=== PATIENT | male | born 1950 | race Hispanic/Latino ===

== ENCOUNTER 2021-11-03 17:25 | Inpatient (IN) | payer MEDICARE ==
[~2021-11-03] VITALS: Ht 180.3 cm; Wt 83.5 kg
[2021-11-03] MEDS ORDERED: METFORMIN HCL500 M1 PO (17:45)
[2021-11-03] MEDS ORDERED: BASAGLAR K100 UNIT/1 SQ (17:45)
[2021-11-03] MEDS ORDERED: ATORVASTATIN CA20 MG PO (17:45)
[2021-11-03] MEDS ORDERED: SODIUM CHLORIDE FLUSH 10 ML SYR INJ PRN (19:30)
[2021-11-03] MEDS ORDERED: CEFTRIAXONE 1 GM VIAL IV ONE (19:30)
[2021-11-03] MEDS ORDERED: LIDOCAINE VISC 2% SOLN 15 ML UDC ONE (19:33)
[2021-11-03] MEDS ORDERED: SODIUM CHLORIDE 0.9% 100 ML ONE (19:49)
[2021-11-03] MEDS ORDERED: CEFTRIAXONE 1 GM VIAL ONE (19:49)
[2021-11-03 20:55] VITALS: BP 129/71
[2021-11-03] MEDS: SODIUM CHLORIDE 0.9% 1000ML 1,000 ML IV SCH (21:08)
[2021-11-03] MEDS ORDERED: LISINOPRIL10 MG PO (21:51)
[2021-11-03] MEDS ORDERED: OXYBUTYNIN CHLOR5 M1 PO (21:51)
[2021-11-03] MEDS ORDERED: FLOMAX0.4 MG PO (21:51)
[2021-11-03] MEDS ORDERED: PRAVASTATIN SOD40 MG PO (21:51)
[2021-11-04] VITALS (8 sets, daily range): BP systolic 119–136; BP diastolic 68–80
[2021-11-04 06:55] LABS: BASOPHILS # (AUTO) 0.1 (0.0-0.1); BASOPHILS % 1.1 % (0.0-1.0); EOSINOPHILS # (AUTO) 0.5 (0.0-0.4); EOSINOPHILS % 4.4 % (0.0-6.0); HEMATOCRIT 45.2 % (38.2-49.6); LYMPHOCYTES # (AUTO) 1.4 (1.0-3.2); LYMPHOCYTES % 11.7 % (18.0-39.1); MEAN CORPUSCULAR HEMOGLOBIN 25.5 pg (28-32); MEAN CORPUSCULAR VOLUME 82.2 fL (81-99); MONOCYTES % 8.2 % (4.4-11.3); NEUTROPHILS # (AUTO) 8.8 (2.1-6.9); NEUTROPHILS % 73.8 % (38.7-80.0); PLATELET COUNT 1023 x10e3/uL (140-360)
[2021-11-04 08:15] LABS: PLATELET ESTIMATE MARKEDLY INCREASED
[2021-11-04 08:18] LABS: ELLIPTOCYTE, RBC SLIGHT
[2021-11-04 08:19] LABS: RBC MORPHOLOGY COMMENT NORMAL
[2021-11-04 08:20] LABS: ANISOCYTOSIS SLIGHT; HYPOCHROMASIA SLIGHT
[2021-11-04 08:21] LABS: PLATELET MORPHOLOGY COMMENT NORMAL
[2021-11-04] MEDS ORDERED: DEXTROSE 50% SYRINGE 50 ML IV PRN (09:00)
[2021-11-04] MEDS ORDERED: INSULIN GLARGINE HUM REC ANLOG 38 UNIT SQ SCH (09:00)
[2021-11-04] MEDS ORDERED: [UNRECOGNIZED DRUG - OTHER] SQ SCH (09:00)
[2021-11-04] MEDS: SODIUM CHLORIDE 0.9% 1000ML 1,000 ML IV SCH ×2 (09:20→21:44)
[2021-11-04] MEDS: LISINOPRIL 10 MG TAB PO SCH (09:22)
[2021-11-04] MEDS: OXYBUTYNIN CHLORIDE XL 5 MG TAB PO SCH (09:23)
[2021-11-04 09:46] LABS: ANION GAP 10.4 mmol/L (8-16); CALCIUM 8.2 mg/dL (8.4-10.2); CREATININE, SERUM 0.8 mg/dL (0.72-1.25); POTASSIUM 4.4 mmol/L (3.5-5.1)
[2021-11-04] MEDS: INSULIN LISPRO 100 UNIT/1 ML 3ML VIAL SQ SCH ×3 (12:17→21:00)
[2021-11-04 14:19] LABS: HEMATOCRIT 47.1 % (38.2-49.6); HEMOGLOBIN 14.1 g/dL (14.0-18.0); MEAN CORPUSCULAR HEMOGLOBIN 25.1 pg (28-32); MEAN CORPUSCULAR HGB CONC 29.9 g/dL (31-35); PLATELET COUNT 1058 x10e3/uL (140-360); RED BLOOD COUNT 5.61 x10e6/uL (4.3-5.7); RED CELL DISTRIBUTION WIDTH 16.1 % (11.7-14.4)
[2021-11-04] MEDS ORDERED: LACTULOSE SYRUP 20 GM/30 ML UDC PO ONE (17:10)
[2021-11-04] MEDS: ENOXAPARIN SOD INJ 40 MG/0.4 ML SYR SC SCH (17:32)
[2021-11-04] MEDS: TAMSULOSIN HCL 0.4 MG CAP PO SCH (17:32)
[2021-11-04] MEDS: HYDROXYUREA 500 MG CAPSULE PO SCH (17:33)
[2021-11-04] MEDS ORDERED: ONDANSETRON HCL INJ 2MG/ML 2ML 2 MG/ML VIAL IV PRN (20:45)
[2021-11-04] MEDS ORDERED: Morphine 2mg Syringe 2 MG/ML SYR IV PRN (20:45)
[2021-11-04] MEDS ORDERED: ACETAMINOPHEN 325 MG TAB PO PRN (20:45)
[2021-11-04] MEDS ORDERED: TRAMADOL HCL 50 MG TAB PO PRN (20:45)
[2021-11-04] MEDS ORDERED: PHENAZOPYRIDINE HCL 100 MG TAB PO ONE (20:45)
[2021-11-04] MEDS: PRAVASTATIN 20 MG TAB PO SCH (20:55)
[2021-11-04] MEDS: INSULIN GLARGINE 100 UNITS/ML VIAL SQ SCH (21:00)
[2021-11-05] VITALS (8 sets, daily range): BP systolic 121–142; BP diastolic 65–77
[2021-11-05 05:43] LABS: BASOPHILS # (AUTO) 0.2 (0.0-0.1); BASOPHILS % 1.1 % (0.0-1.0); EOSINOPHILS # (AUTO) 0.5 (0.0-0.4); EOSINOPHILS % 3.5 % (0.0-6.0); HEMATOCRIT 46.2 % (38.2-49.6); HEMOGLOBIN 14.1 g/dL (14.0-18.0); LYMPHOCYTES # (AUTO) 1.4 (1.0-3.2); MEAN CORPUSCULAR HEMOGLOBIN 25.3 pg (28-32); MEAN CORPUSCULAR HGB CONC 30.5 g/dL (31-35); MEAN CORPUSCULAR VOLUME 82.9 fL (81-99); MONOCYTES # (AUTO) 1.1 (0.2-0.8); MONOCYTES % 7.9 % (4.4-11.3); NEUTROPHILS # (AUTO) 10.6 (2.1-6.9); NEUTROPHILS % 76.9 % (38.7-80.0); PLATELET COUNT 1076 x10e3/uL (140-360); RED BLOOD COUNT 5.57 x10e6/uL (4.3-5.7)
[2021-11-05 06:17] LABS: ALBUMIN 3.3 g/dL (3.5-5.0); ALBUMIN/GLOBULIN RATIO 1.1 (0.8-2.0); ANION GAP 13.7 mmol/L (8-16); CALCIUM 8.3 mg/dL (8.4-10.2); CREATININE, SERUM 0.84 mg/dL (0.72-1.25); POTASSIUM 3.7 mmol/L (3.5-5.1)
[2021-11-05 07:18] LABS: CLARITY,URINE CLEAR (CLEAR); COLOR,URINE YELLOW (YELLOW); KETONES,URINE TRACE (NEGATIVE); NITRITE,URINE NEGATIVE (NEGATIVE); PROTEIN,URINE DIPSTICK NEGATIVE (NEGATIVE); URINE UROBILINOGEN 0.2 mg/dL (0.2 - 1)
[2021-11-05 07:19] LABS: LEUKOCYTE ESTERASE ,URINE TRACE (NEGATIVE)
[2021-11-05] MEDS: INSULIN LISPRO 100 UNIT/1 ML 3ML VIAL SQ SCH ×4 (07:30→23:01)
[2021-11-05 08:10] LABS: RBC,URINE 0-5 /HPF (0-5); WBC,URINE (MAN) 0-5 /HPF (0-5)
[2021-11-05] MEDS: OXYBUTYNIN CHLORIDE XL 5 MG TAB PO SCH (08:47)
[2021-11-05] MEDS: LISINOPRIL 10 MG TAB PO SCH (08:48)
[2021-11-05] MEDS: SODIUM CHLORIDE 0.9% 1000ML 1,000 ML IV SCH ×2 (10:42→23:03)
[2021-11-05] MEDS: TAMSULOSIN HCL 0.4 MG CAP PO SCH (16:52)
[2021-11-05] MEDS: HYDROXYUREA 500 MG CAPSULE PO SCH (16:53)
[2021-11-05] MEDS: ENOXAPARIN SOD INJ 40 MG/0.4 ML SYR SC SCH (16:53)
[2021-11-05] MEDS ORDERED: HYDROXYUREA 500 MG CAPSULE PO ONE (20:00)
[2021-11-05] MEDS: PRAVASTATIN 20 MG TAB PO SCH (22:53)
[2021-11-05] MEDS: INSULIN GLARGINE 100 UNITS/ML VIAL SQ SCH (23:02)
[2021-11-06] VITALS (9 sets, daily range): BP systolic 124–139; BP diastolic 66–79
[2021-11-06 06:30] LABS: BASOPHILS # (AUTO) 0.2 (0.0-0.1); BASOPHILS % 1.1 % (0.0-1.0); EOSINOPHILS # (AUTO) 0.4 (0.0-0.4); EOSINOPHILS % 3.2 % (0.0-6.0); HEMATOCRIT 45.4 % (38.2-49.6); HEMOGLOBIN 13.8 g/dL (14.0-18.0); LYMPHOCYTES # (AUTO) 1.4 (1.0-3.2); LYMPHOCYTES % 9.8 % (18.0-39.1); MEAN CORPUSCULAR HEMOGLOBIN 25.3 pg (28-32); MEAN CORPUSCULAR HGB CONC 30.4 g/dL (31-35); MEAN CORPUSCULAR VOLUME 83.2 fL (81-99); MONOCYTES # (AUTO) 1.1 (0.2-0.8); MONOCYTES % 7.9 % (4.4-11.3); NEUTROPHILS # (AUTO) 10.8 (2.1-6.9); NEUTROPHILS % 77.4 % (38.7-80.0); PLATELET COUNT 1101 x10e3/uL (140-360); RED BLOOD COUNT 5.46 x10e6/uL (4.3-5.7); RED CELL DISTRIBUTION WIDTH 15.9 % (11.7-14.4)
[2021-11-06] MEDS: INSULIN LISPRO 100 UNIT/1 ML 3ML VIAL SQ SCH ×4 (07:30→21:00)
[2021-11-06] MEDS: OXYBUTYNIN CHLORIDE XL 5 MG TAB PO SCH (10:13)
[2021-11-06] MEDS: LISINOPRIL 10 MG TAB PO SCH (10:13)
[2021-11-06] MEDS ORDERED: ONDANSETRON HCL 4 MG ORAL DISINTEGRATING TAB PO PRN (11:00)
[2021-11-06] MEDS: SODIUM CHLORIDE 0.9% 1000ML 1,000 ML IV SCH (12:20)
[2021-11-06] MEDS: ENOXAPARIN SOD INJ 40 MG/0.4 ML SYR SC SCH (17:22)
[2021-11-06] MEDS: TAMSULOSIN HCL 0.4 MG CAP PO SCH (17:23)
[2021-11-06] MEDS ORDERED: HYDROXYUREA 500 MG CAPSULE PO SCH (18:00)
[2021-11-06 18:17] LABS: INR 1.05; PROTHROMBIN TIME 14.7 seconds (11.9-14.5)
[2021-11-06] MEDS: INSULIN GLARGINE 100 UNITS/ML VIAL SQ SCH (21:00)
[2021-11-06] MEDS: PRAVASTATIN 20 MG TAB PO SCH (21:12)
[2021-11-07 04:26] VITALS: BP 134/77
[2021-11-07 06:20] LABS: BASOPHILS # (AUTO) 0.1 (0.0-0.1); EOSINOPHILS # (AUTO) 0.6 (0.0-0.4); EOSINOPHILS % 4.8 % (0.0-6.0); HEMATOCRIT 43.2 % (38.2-49.6); HEMOGLOBIN 13.5 g/dL (14.0-18.0); LYMPHOCYTES # (AUTO) 1.5 (1.0-3.2); LYMPHOCYTES % 11.7 % (18.0-39.1); MEAN CORPUSCULAR HEMOGLOBIN 24.9 pg (28-32); MEAN CORPUSCULAR HGB CONC 31.3 g/dL (31-35); MEAN CORPUSCULAR VOLUME 79.6 fL (81-99); MONOCYTES % 7.8 % (4.4-11.3); NEUTROPHILS # (AUTO) 9.6 (2.1-6.9); NEUTROPHILS % 74.2 % (38.7-80.0); PLATELET COUNT 989 x10e3/uL (140-360); RED BLOOD COUNT 5.43 x10e6/uL (4.3-5.7); RED CELL DISTRIBUTION WIDTH 15.9 % (11.7-14.4)
[2021-11-07] MEDS: INSULIN LISPRO 100 UNIT/1 ML 3ML VIAL SQ SCH ×4 (07:30→21:30)
[2021-11-07 08:12] VITALS: BP 147/78
[2021-11-07 08:47] VITALS: BP 147/78
[2021-11-07] MEDS: OXYBUTYNIN CHLORIDE XL 5 MG TAB PO SCH (10:05)
[2021-11-07] MEDS: LISINOPRIL 10 MG TAB PO SCH (10:05)
[2021-11-07 11:57] VITALS: BP 130/70
[2021-11-07 16:01] VITALS: BP 152/71
[2021-11-07] MEDS: ENOXAPARIN SOD INJ 40 MG/0.4 ML SYR SC SCH (17:00)
[2021-11-07] MEDS: TAMSULOSIN HCL 0.4 MG CAP PO SCH (17:09)
[2021-11-07] MEDS: HYDROXYUREA 500 MG CAPSULE PO SCH ×2 (17:09→22:15)
[2021-11-07 20:00] VITALS: BP 117/68
[2021-11-07] MEDS: INSULIN GLARGINE 100 UNITS/ML VIAL SQ SCH (21:30)
[2021-11-07] MEDS: PRAVASTATIN 20 MG TAB PO SCH (22:15)
[2021-11-08] VITALS: BP 112/67
[2021-11-08 04:00] VITALS: BP 151/92
[2021-11-08] MEDS: INSULIN LISPRO 100 UNIT/1 ML 3ML VIAL SQ SCH ×3 (07:30→16:30)
[2021-11-08 08:00] VITALS: BP 119/85
[2021-11-08 09:35] VITALS: BP 119/85
[2021-11-08] MEDS ORDERED: HYDROXYUREA500 MG PO (09:38)
[2021-11-08] MEDS ORDERED: BASAGLAR K100 UNIT/1 SQ (09:38)
[2021-11-08] MEDS ORDERED: MIDAZOLAM HCL 2 MG/2 ML VIAL ONE (10:29)
[2021-11-08] MEDS ORDERED: FENTANYL CITRATE/PF 100MCG/2 ML INJ ONE (10:29)
[2021-11-08] MEDS ORDERED: LIDOCAINE HCL 1% LOCAL INJ 20 ML VIAL ONE (10:34)
[2021-11-08] MEDS: OXYBUTYNIN CHLORIDE XL 5 MG TAB PO SCH (11:38)
[2021-11-08] MEDS: HYDROXYUREA 500 MG CAPSULE PO SCH ×2 (11:38→16:10)
[2021-11-08] MEDS: LISINOPRIL 10 MG TAB PO SCH (11:40)
[2021-11-08 11:43] VITALS: BP 139/84
[2021-11-08 14:56] LABS: BASOPHILS # (AUTO) 0.2 (0.0-0.1); BASOPHILS % 1.2 % (0.0-1.0); EOSINOPHILS # (AUTO) 0.3 (0.0-0.4); EOSINOPHILS % 1.9 % (0.0-6.0); HEMATOCRIT 44.8 % (38.2-49.6); HEMOGLOBIN 14.1 g/dL (14.0-18.0); LYMPHOCYTES # (AUTO) 1.1 (1.0-3.2); LYMPHOCYTES % 7.4 % (18.0-39.1); MEAN CORPUSCULAR HEMOGLOBIN 25.3 pg (28-32); MEAN CORPUSCULAR HGB CONC 31.5 g/dL (31-35); MEAN CORPUSCULAR VOLUME 80.4 fL (81-99); MONOCYTES # (AUTO) 1.1 (0.2-0.8); MONOCYTES % 7.2 % (4.4-11.3); NEUTROPHILS % 81.8 % (38.7-80.0); PLATELET COUNT 1071 x10e3/uL (140-360); RED BLOOD COUNT 5.57 x10e6/uL (4.3-5.7); RED CELL DISTRIBUTION WIDTH 15.7 % (11.7-14.4)
[2021-11-08 15:57] VITALS: BP 119/77
[2021-11-08] MEDS: ENOXAPARIN SOD INJ 40 MG/0.4 ML SYR SC SCH (16:11)
[2021-11-08] MEDS: TAMSULOSIN HCL 0.4 MG CAP PO SCH (16:11)
== END 2021-11-08 17:55 | disposition home or self-care (01) | DRG 726 ==
LOC: FSED 17:50 → ERHOLD 19:25 → MED/SURG2 20:55 → INTOOBSV 11-04 08:47 → OBSVTOIN 11-04 08:47
PROVIDERS: ADMIT Internal Medicine; ATTEND Internal Medicine
PROC: 079T3ZX Drainage of Bone Marrow, Percutaneous Approach, Diagnostic (ICD-10-PCS; principal; 2021-11-08)
PROC: 07DR3ZX Extraction of Iliac Bone Marrow, Percutaneous Approach, Diagnostic (ICD-10-PCS; 2021-11-08)
DX: N40.1 Benign prostatic hyperplasia with lower urinary tract symptoms (principal); N13.8 Other obstructive and reflux uropathy; D75.839 Thrombocytosis, unspecified; E11.69 Type 2 diabetes mellitus with other specified complication; Z79.899 Other long term (current) drug therapy; E78.5 Hyperlipidemia, unspecified; R33.8 Other retention of urine; E83.51 Hypocalcemia; D64.9 Anemia, unspecified; Z85.850 Personal history of malignant neoplasm of thyroid; Z20.822 Contact with and (suspected) exposure to COVID-19
CPT/HCPCS: 36415; 38222; 51700; 74176; 74470; 77012; 80048; 80053; 80076; 81001; 81003; 81220; 82607; 82746; 82948; 84152; 84443; 85007; 85025; 85027; 85610; 87086; 88184; 99284; G0378; J0696; J1650; J2001; J2250; J3010; J7030; J7050

== ENCOUNTER 2021-12-10 22:45 | Emergency (ER) | payer MEDICARE ==
[~2021-12-10] VITALS: Ht 180.3 cm; Wt 83.5 kg
[~2021-12-10 22:45] MED LIST: ATORVASTATIN CA20 MG PO; BASAGLAR K100 UNIT/1 SQ; FLOMAX0.4 MG PO; HYDROXYUREA500 MG PO; LISINOPRIL10 MG PO; METFORMIN HCL500 M1 PO; OXYBUTYNIN CHLOR5 M1 PO; PRAVASTATIN SOD40 MG PO
[2021-12-10 23:09] LABS: CLARITY,URINE CLOUDY (CLEAR); COLOR,URINE YELLOW (YELLOW); KETONES,URINE NEGATIVE (NEGATIVE); LEUKOCYTE ESTERASE ,URINE MODERATE (NEGATIVE); NITRITE,URINE POSITIVE (NEGATIVE); PROTEIN,URINE DIPSTICK NEGATIVE (NEGATIVE); URINE UROBILINOGEN 0.2 mg/dL (0.2 - 1)
[2021-12-10 23:13] LABS: BACTERIA,URINE MODERATE /HPF; EPITHELIAL CELLS,URINE FEW /LPF; WBC,URINE (MAN) >50 /HPF (0-5)
== END 2021-12-10 23:22 | disposition home or self-care (01) ==
LOC: ER 22:51
DX: R33.9 Retention of urine, unspecified (principal); I10 Essential (primary) hypertension; E11.9 Type 2 diabetes mellitus without complications; E78.5 Hyperlipidemia, unspecified
CPT/HCPCS: 51700; 81001; 87086; 87186; 99283

== ENCOUNTER 2022-01-22 06:55 | Inpatient (IN) | payer MEDICARE ==
[2022-01-20 11:51] LABS: BASOPHILS # (AUTO) 0.1 (0.0-0.1); BASOPHILS % 0.6 % (0.0-1.0); EOSINOPHILS # (AUTO) 0.2 (0.0-0.4); EOSINOPHILS % 1.7 % (0.0-6.0); HEMATOCRIT 38.8 % (38.2-49.6); HEMOGLOBIN 11.9 g/dL (14.0-18.0); MEAN CORPUSCULAR HEMOGLOBIN 27.7 pg (28-32); MEAN CORPUSCULAR HGB CONC 30.7 g/dL (31-35); MEAN CORPUSCULAR VOLUME 90.2 fL (81-99); MONOCYTES # (AUTO) 0.7 (0.2-0.8); MONOCYTES % 7.3 % (4.4-11.3); NEUTROPHILS # (AUTO) 7.4 (2.1-6.9); NEUTROPHILS % 79.1 % (38.7-80.0); PLATELET COUNT 587 x10e3/uL (140-360); RED CELL DISTRIBUTION WIDTH 20.5 % (11.7-14.4)
[2022-01-20 12:10] LABS: ANION GAP 12.2 mmol/L (8-16); CALCIUM 8.7 mg/dL (8.4-10.2); CREATININE, SERUM 0.96 mg/dL (0.72-1.25); POTASSIUM 4.2 mmol/L (3.5-5.1)
[~2022-01-22 06:55] MED LIST changes: +BASAGLAR K100 UNIT/1 SC; +FINASTERIDE5 MG PO; +MULTI-VITAMIN1 EACH PO
[2022-01-22] MEDS ORDERED: CEFTRIAXONE 1 GM VIAL ONE (07:16)
[2022-01-22] MEDS ORDERED: GENTAMICIN 80MG/NS 100 ML 200 ML IV ONE (07:16)
[2022-01-22] MEDS ORDERED: IOPAMIDOL 300MG/ML 50ML INFUS..BTL IV ONE (07:24)
[2022-01-22] MEDS ORDERED: B&O 60MG R/S 60 MG SUPP PR ONE (07:24)
[2022-01-22] MEDS ORDERED: B&O 60MG R/S 60 MG SUPP PR PRN (10:15)
[2022-01-22] MEDS ORDERED: PHENAZOPYRIDINE HCL 100 MG TAB PO PRN (10:15)
[2022-01-22] MEDS ORDERED: ONDANSETRON HCL INJ 2MG/ML 2ML 2 MG/ML VIAL IV PRN (10:15)
[2022-01-22] MEDS ORDERED: Morphine 4mg INJECTION 4 MG/ML INJ ONE (10:25)
[2022-01-22] MEDS ORDERED: MEPERIDINE HCL INJ 25 MG/ML VIAL ONE (10:32)
[2022-01-22 10:50] LABS: BASOPHILS # (AUTO) 0.1 (0.0-0.1); BASOPHILS % 0.3 % (0.0-1.0); EOSINOPHILS # (AUTO) 0.2 (0.0-0.4); EOSINOPHILS % 0.9 % (0.0-6.0); HEMOGLOBIN 10.9 g/dL (14.0-18.0); LYMPHOCYTES # (AUTO) 1.9 (1.0-3.2); LYMPHOCYTES % 7.3 % (18.0-39.1); MEAN CORPUSCULAR HEMOGLOBIN 28.5 pg (28-32); MEAN CORPUSCULAR HGB CONC 30.3 g/dL (31-35); MONOCYTES # (AUTO) 0.7 (0.2-0.8); MONOCYTES % 2.8 % (4.4-11.3); NEUTROPHILS # (AUTO) 22.6 (2.1-6.9); NEUTROPHILS % 87.6 % (38.7-80.0); PLATELET COUNT 532 x10e3/uL (140-360); RED BLOOD COUNT 3.83 x10e6/uL (4.3-5.7); RED CELL DISTRIBUTION WIDTH 20.3 % (11.7-14.4)
[2022-01-22 11:08] LABS: CALCIUM 7.1 mg/dL (8.4-10.2); CREATININE, SERUM 0.76 mg/dL (0.72-1.25)
[2022-01-22 11:46] LABS: ANISOCYTOSIS MODERATE; BAND NEUTROPHILS % (MANUAL) 4 %; LYMPHOCYTES % (MANUAL) 7 % (19-48); MONOCYTES % (MANUAL) 1 % (3.4-9.0); NEUTROPHILS % (MANUAL) 86 % (40-74); PLATELET ESTIMATE ADEQUATE; PLATELET MORPHOLOGY COMMENT NORMAL; RBC MORPHOLOGY COMMENT ABNORMAL
[2022-01-22] MEDS ORDERED: ONDANSETRON HCL INJ 2MG/ML 2ML 2 MG/ML VIAL ONE (12:25)
[2022-01-22] MEDS ORDERED: DEXAMETHASONE SOD PHOS INJ 4 MG/ML SDV ONE (12:25)
[2022-01-22] MEDS ORDERED: SEVOFLURANE INHAL SOLN 250 ML PEN BTL ONE (12:25)
[2022-01-22] MEDS ORDERED: POVIDONE IODINE 0.05% 0.05 % ML PO ONE (12:25)
[2022-01-22] MEDS ORDERED: ACETAMINOPHEN 1000 MG/100 ML IV ONE (12:25)
[2022-01-22] MEDS ORDERED: PROPOFOL IV EMULSION 10 MG/ML 20 ML VIAL ONE ×2 (12:25→12:49)
[2022-01-22] MEDS ORDERED: LIDOCAINE HCL 2% LOCAL INJ 5 ML SDV VIAL INJ ONE ×2 (12:25→12:49)
[2022-01-22] MEDS: DOCUSATE SODIUM 100 MG CAP PO SCH (13:04)
[2022-01-22] MEDS: SODIUM CHLORIDE 0.9% 1000ML 1,000 ML IV SCH (13:08)
[2022-01-22 13:34] VITALS: BP 104/61
[2022-01-22] MEDS: ACETAMINOPHEN/CODEINE 300MG - 30MG TAB PO PRN (15:34)
[2022-01-22 16:53] VITALS: BP 124/67
[2022-01-22 17:08] LABS: FERRITIN 77.82 ng/mL (21.81-274.66)
[2022-01-22 17:50] VITALS: BP 124/67
[2022-01-22] MEDS: KETOROLAC TROMETHAMINE 30 MG/ML VIAL IV PRN (19:55)
[2022-01-22 20:21] VITALS: BP 129/67
[2022-01-22] MEDS ORDERED: DEXTROSE 50% SYRINGE 50 ML IV PRN (22:45)
[2022-01-23] VITALS (7 sets, daily range): BP systolic 107–125; BP diastolic 58–69
[2022-01-23 05:42] LABS: BASOPHILS % 0.2 % (0.0-1.0); EOSINOPHILS # (AUTO) 0.1 (0.0-0.4); EOSINOPHILS % 0.5 % (0.0-6.0); HEMATOCRIT 31.8 % (38.2-49.6); HEMOGLOBIN 9.8 g/dL (14.0-18.0); LYMPHOCYTES # (AUTO) 1.2 (1.0-3.2); LYMPHOCYTES % 9.2 % (18.0-39.1); MEAN CORPUSCULAR HEMOGLOBIN 28.2 pg (28-32); MEAN CORPUSCULAR HGB CONC 30.8 g/dL (31-35); MEAN CORPUSCULAR VOLUME 91.6 fL (81-99); MONOCYTES # (AUTO) 1.1 (0.2-0.8); MONOCYTES % 8.9 % (4.4-11.3); NEUTROPHILS # (AUTO) 10.3 (2.1-6.9); NEUTROPHILS % 80.7 % (38.7-80.0); PLATELET COUNT 559 x10e3/uL (140-360); RED BLOOD COUNT 3.47 x10e6/uL (4.3-5.7); RED CELL DISTRIBUTION WIDTH 20.7 % (11.7-14.4)
[2022-01-23] MEDS: SODIUM CHLORIDE 0.9% 1000ML 1,000 ML IV SCH ×4 (05:45→21:29)
[2022-01-23 06:14] LABS: CALCIUM 7.1 mg/dL (8.4-10.2); CREATININE, SERUM 0.76 mg/dL (0.72-1.25)
[2022-01-23] MEDS: INSULIN GLARGINE 100 UNITS/ML VIAL SC SCH ×2 (07:30→16:30)
[2022-01-23] MEDS: INSULIN LISPRO 100 UNIT/1 ML 3ML VIAL SQ SCH ×4 (07:30→20:27)
[2022-01-23] MEDS: OXYBUTYNIN CHLORIDE XL 5 MG TAB PO SCH (08:08)
[2022-01-23] MEDS: LISINOPRIL 10 MG TAB PO SCH (08:08)
[2022-01-23] MEDS: FINASTERIDE 5 MG TAB PO SCH (08:08)
[2022-01-23] MEDS: MULTIVITAMINS/MINERALS TAB PO SCH (08:08)
[2022-01-23] MEDS: DOCUSATE SODIUM 100 MG CAP PO SCH ×2 (08:08→16:34)
[2022-01-23] MEDS: KETOROLAC TROMETHAMINE 30 MG/ML VIAL IV PRN ×2 (08:09→20:13)
[2022-01-23 08:11] LABS: BASOPHILS # (AUTO) 0.1 (0.0-0.1); BASOPHILS % 0.4 % (0.0-1.0); EOSINOPHILS # (AUTO) 0.1 (0.0-0.4); EOSINOPHILS % 0.8 % (0.0-6.0); HEMATOCRIT 30.3 % (38.2-49.6); HEMOGLOBIN 9.7 g/dL (14.0-18.0); LYMPHOCYTES # (AUTO) 1.4 (1.0-3.2); LYMPHOCYTES % 12.2 % (18.0-39.1); MEAN CORPUSCULAR HEMOGLOBIN 28.2 pg (28-32); MEAN CORPUSCULAR VOLUME 88.1 fL (81-99); MONOCYTES % 8.9 % (4.4-11.3); NEUTROPHILS # (AUTO) 8.6 (2.1-6.9); NEUTROPHILS % 77.2 % (38.7-80.0); PLATELET COUNT 524 x10e3/uL (140-360); RED BLOOD COUNT 3.44 x10e6/uL (4.3-5.7); RED CELL DISTRIBUTION WIDTH 20.8 % (11.7-14.4)
[2022-01-23 08:31] LABS: PLATELET ESTIMATE ADEQUATE
[2022-01-23 08:32] LABS: ANISOCYTOSIS MODERATE; PLATELET MORPHOLOGY COMMENT NORMAL; RBC MORPHOLOGY COMMENT ABNORMAL
[2022-01-23] MEDS ORDERED: ONDANSETRON HCL 4 MG ORAL DISINTEGRATING TAB PO PRN (15:00)
[2022-01-23] MEDS: MAGNESIUM HYDROXIDE 30 ML UDC PO PRN ×2 (15:01→21:30)
[2022-01-23] MEDS: TAMSULOSIN HCL 0.4 MG CAP PO SCH (16:34)
[2022-01-23] MEDS: PRAVASTATIN 20 MG TAB PO SCH (20:12)
[2022-01-24] VITALS (8 sets, daily range): BP systolic 125–142; BP diastolic 65–83
[2022-01-24 05:35] LABS: BASOPHILS % 0.4 % (0.0-1.0); EOSINOPHILS # (AUTO) 0.3 (0.0-0.4); EOSINOPHILS % 2.9 % (0.0-6.0); HEMATOCRIT 30.4 % (38.2-49.6); HEMOGLOBIN 9.5 g/dL (14.0-18.0); LYMPHOCYTES # (AUTO) 1.3 (1.0-3.2); LYMPHOCYTES % 15.4 % (18.0-39.1); MEAN CORPUSCULAR HEMOGLOBIN 28.3 pg (28-32); MEAN CORPUSCULAR HGB CONC 31.3 g/dL (31-35); MEAN CORPUSCULAR VOLUME 90.5 fL (81-99); MONOCYTES # (AUTO) 0.9 (0.2-0.8); MONOCYTES % 10.1 % (4.4-11.3); NEUTROPHILS # (AUTO) 6.1 (2.1-6.9); NEUTROPHILS % 70.8 % (38.7-80.0); PLATELET COUNT 506 x10e3/uL (140-360); RED BLOOD COUNT 3.36 x10e6/uL (4.3-5.7); RED CELL DISTRIBUTION WIDTH 20.6 % (11.7-14.4)
[2022-01-24 05:52] LABS: ANION GAP 8.6 mmol/L (8-16); CALCIUM 7.5 mg/dL (8.4-10.2); CREATININE, SERUM 0.72 mg/dL (0.72-1.25); POTASSIUM 3.6 mmol/L (3.5-5.1)
[2022-01-24] MEDS: INSULIN GLARGINE 100 UNITS/ML VIAL SC SCH ×2 (08:00→16:55)
[2022-01-24] MEDS: INSULIN LISPRO 100 UNIT/1 ML 3ML VIAL SQ SCH ×4 (08:00→21:00)
[2022-01-24] MEDS: OXYBUTYNIN CHLORIDE XL 5 MG TAB PO SCH (09:30)
[2022-01-24] MEDS: DOCUSATE SODIUM 100 MG CAP PO SCH ×2 (09:30→17:00)
[2022-01-24] MEDS: LISINOPRIL 10 MG TAB PO SCH (09:30)
[2022-01-24] MEDS: FINASTERIDE 5 MG TAB PO SCH (09:30)
[2022-01-24] MEDS: HYDROXYUREA 500 MG CAPSULE PO SCH (09:30)
[2022-01-24] MEDS: MULTIVITAMINS/MINERALS TAB PO SCH (09:30)
[2022-01-24] MEDS ORDERED: BISACODYL 10 MG SUPP PR ONE (11:30)
[2022-01-24] MEDS: ACETAMINOPHEN/CODEINE 300MG - 30MG TAB PO PRN ×2 (16:59→21:30)
[2022-01-24] MEDS: TAMSULOSIN HCL 0.4 MG CAP PO SCH (17:00)
[2022-01-24] MEDS: PRAVASTATIN 20 MG TAB PO SCH (22:27)
[2022-01-25] VITALS (10 sets, daily range): BP systolic 121–144; BP diastolic 65–79
[2022-01-25] MEDS ORDERED: SODIUM CHLORIDE 0.9% 250ML 0 ML ONE (05:16)
[2022-01-25] MEDS: ACETAMINOPHEN/CODEINE 300MG - 30MG TAB PO PRN ×2 (05:37→21:06)
[2022-01-25 06:08] LABS: BASOPHILS % 0.3 % (0.0-1.0); EOSINOPHILS # (AUTO) 0.1 (0.0-0.4); EOSINOPHILS % 0.8 % (0.0-6.0); HEMATOCRIT 30.7 % (38.2-49.6); HEMOGLOBIN 10.2 g/dL (14.0-18.0); LYMPHOCYTES # (AUTO) 0.9 (1.0-3.2); LYMPHOCYTES % 7.4 % (18.0-39.1); MEAN CORPUSCULAR HEMOGLOBIN 28.3 pg (28-32); MEAN CORPUSCULAR HGB CONC 33.2 g/dL (31-35); MONOCYTES # (AUTO) 1.2 (0.2-0.8); MONOCYTES % 9.7 % (4.4-11.3); NEUTROPHILS # (AUTO) 9.7 (2.1-6.9); NEUTROPHILS % 81.4 % (38.7-80.0); PLATELET COUNT 584 x10e3/uL (140-360); RED BLOOD COUNT 3.61 x10e6/uL (4.3-5.7); RED CELL DISTRIBUTION WIDTH 19.9 % (11.7-14.4)
[2022-01-25 06:39] LABS: ANION GAP 14.2 mmol/L (8-16); CALCIUM 8.4 mg/dL (8.4-10.2); CREATININE, SERUM 0.66 mg/dL (0.72-1.25); POTASSIUM 3.2 mmol/L (3.5-5.1)
[2022-01-25] MEDS: INSULIN LISPRO 100 UNIT/1 ML 3ML VIAL SQ SCH ×4 (07:30→21:20)
[2022-01-25] MEDS: MEROPENEM 1 GM in SODIUM CHLORIDE 0.9% 100 ML IV SCH ×2 (09:49→21:05)
[2022-01-25] MEDS: HYDROXYUREA 500 MG CAPSULE PO SCH (09:51)
[2022-01-25] MEDS: DOCUSATE SODIUM 100 MG CAP PO SCH ×2 (09:51→17:39)
[2022-01-25] MEDS: MULTIVITAMINS/MINERALS TAB PO SCH (09:51)
[2022-01-25] MEDS: LISINOPRIL 10 MG TAB PO SCH (09:52)
[2022-01-25] MEDS: OXYBUTYNIN CHLORIDE XL 5 MG TAB PO SCH (09:52)
[2022-01-25] MEDS: FINASTERIDE 5 MG TAB PO SCH (09:52)
[2022-01-25] MEDS: INSULIN GLARGINE 100 UNITS/ML VIAL SC SCH ×2 (10:52→17:44)
[2022-01-25 14:06] LABS: BASOPHILS # (AUTO) 0.1 (0.0-0.1); BASOPHILS % 0.5 % (0.0-1.0); EOSINOPHILS # (AUTO) 0.1 (0.0-0.4); HEMATOCRIT 31.4 % (38.2-49.6); HEMOGLOBIN 10.3 g/dL (14.0-18.0); LYMPHOCYTES # (AUTO) 0.7 (1.0-3.2); LYMPHOCYTES % 7.1 % (18.0-39.1); MEAN CORPUSCULAR HEMOGLOBIN 28.1 pg (28-32); MEAN CORPUSCULAR HGB CONC 32.8 g/dL (31-35); MEAN CORPUSCULAR VOLUME 85.8 fL (81-99); MONOCYTES % 9.2 % (4.4-11.3); NEUTROPHILS # (AUTO) 8.4 (2.1-6.9); NEUTROPHILS % 81.6 % (38.7-80.0); PLATELET COUNT 553 x10e3/uL (140-360); RED BLOOD COUNT 3.66 x10e6/uL (4.3-5.7); RED CELL DISTRIBUTION WIDTH 19.9 % (11.7-14.4)
[2022-01-25] MEDS ORDERED: POTASSIUM CHLORIDE 20 MEQ TAB CR PO NR (15:45)
[2022-01-25] MEDS: TAMSULOSIN HCL 0.4 MG CAP PO SCH (17:39)
[2022-01-25] MEDS: PRAVASTATIN 20 MG TAB PO SCH (21:05)
[2022-01-25] MEDS ORDERED: POTASSIUM CHLORIDE 20 MEQ TAB CR PO PRN (22:00)
[2022-01-26] VITALS (10 sets, daily range): BP systolic 113–132; BP diastolic 65–77
[2022-01-26 06:25] LABS: BASOPHILS # (AUTO) 0.1 (0.0-0.1); BASOPHILS % 0.5 % (0.0-1.0); EOSINOPHILS # (AUTO) 0.4 (0.0-0.4); EOSINOPHILS % 3.7 % (0.0-6.0); HEMOGLOBIN 10.5 g/dL (14.0-18.0); LYMPHOCYTES % 9.8 % (18.0-39.1); MEAN CORPUSCULAR HEMOGLOBIN 28.2 pg (28-32); MEAN CORPUSCULAR HGB CONC 30.9 g/dL (31-35); MEAN CORPUSCULAR VOLUME 91.4 fL (81-99); MONOCYTES # (AUTO) 1.5 (0.2-0.8); MONOCYTES % 13.8 % (4.4-11.3); NEUTROPHILS # (AUTO) 7.6 (2.1-6.9); NEUTROPHILS % 71.8 % (38.7-80.0); PLATELET COUNT 573 x10e3/uL (140-360); RED BLOOD COUNT 3.72 x10e6/uL (4.3-5.7); RED CELL DISTRIBUTION WIDTH 19.9 % (11.7-14.4)
[2022-01-26 06:39] LABS: ANION GAP 10.7 mmol/L (8-16); CALCIUM 8.5 mg/dL (8.4-10.2); CREATININE, SERUM 0.83 mg/dL (0.72-1.25); POTASSIUM 3.7 mmol/L (3.5-5.1)
[2022-01-26] MEDS: INSULIN LISPRO 100 UNIT/1 ML 3ML VIAL SQ SCH ×4 (07:30→20:50)
[2022-01-26] MEDS: DOCUSATE SODIUM 100 MG CAP PO SCH ×2 (08:08→16:54)
[2022-01-26] MEDS: OXYBUTYNIN CHLORIDE XL 5 MG TAB PO SCH (08:09)
[2022-01-26] MEDS: LISINOPRIL 10 MG TAB PO SCH (08:09)
[2022-01-26] MEDS: HYDROXYUREA 500 MG CAPSULE PO SCH (08:09)
[2022-01-26] MEDS: FINASTERIDE 5 MG TAB PO SCH (08:09)
[2022-01-26] MEDS: MULTIVITAMINS/MINERALS TAB PO SCH (08:09)
[2022-01-26] MEDS: MEROPENEM 1 GM in SODIUM CHLORIDE 0.9% 100 ML IV SCH ×2 (08:16→20:16)
[2022-01-26] MEDS: TAMSULOSIN HCL 0.4 MG CAP PO SCH (16:54)
[2022-01-26] MEDS: PRAVASTATIN 20 MG TAB PO SCH (20:16)
[2022-01-27] VITALS: BP 128/69
[2022-01-27 04:00] VITALS: BP 131/75
[2022-01-27 04:57] LABS: BASOPHILS # (AUTO) 0.1 (0.0-0.1); BASOPHILS % 0.7 % (0.0-1.0); EOSINOPHILS # (AUTO) 0.6 (0.0-0.4); EOSINOPHILS % 6.3 % (0.0-6.0); HEMATOCRIT 30.7 % (38.2-49.6); HEMOGLOBIN 10.2 g/dL (14.0-18.0); LYMPHOCYTES # (AUTO) 1.6 (1.0-3.2); LYMPHOCYTES % 16.2 % (18.0-39.1); MEAN CORPUSCULAR HEMOGLOBIN 28.7 pg (28-32); MEAN CORPUSCULAR HGB CONC 33.2 g/dL (31-35); MONOCYTES # (AUTO) 1.2 (0.2-0.8); MONOCYTES % 12.4 % (4.4-11.3); NEUTROPHILS # (AUTO) 6.1 (2.1-6.9); NEUTROPHILS % 64.1 % (38.7-80.0); PLATELET COUNT 566 x10e3/uL (140-360); RED BLOOD COUNT 3.56 x10e6/uL (4.3-5.7); RED CELL DISTRIBUTION WIDTH 19.5 % (11.7-14.4)
[2022-01-27 05:05] LABS: MEAN CORPUSCULAR VOLUME 86.2 fL (81-99)
[2022-01-27 05:22] LABS: ANION GAP 13.6 mmol/L (8-16); CALCIUM 8.5 mg/dL (8.4-10.2); CREATININE, SERUM 0.75 mg/dL (0.72-1.25); POTASSIUM 3.6 mmol/L (3.5-5.1)
[2022-01-27 08:04] VITALS: BP 130/62
[2022-01-27 08:07] VITALS: BP 130/62
[2022-01-27] MEDS: OXYBUTYNIN CHLORIDE XL 5 MG TAB PO SCH (09:00)
[2022-01-27] MEDS: DOCUSATE SODIUM 100 MG CAP PO SCH (09:00)
[2022-01-27] MEDS: FINASTERIDE 5 MG TAB PO SCH (09:00)
[2022-01-27] MEDS: MEROPENEM 1 GM in SODIUM CHLORIDE 0.9% 100 ML IV SCH (09:00)
[2022-01-27] MEDS: LISINOPRIL 10 MG TAB PO SCH (09:00)
[2022-01-27] MEDS: HYDROXYUREA 500 MG CAPSULE PO SCH (09:00)
[2022-01-27] MEDS: MULTIVITAMINS/MINERALS TAB PO SCH (09:00)
[2022-01-27 11:48] VITALS: BP 129/67
== END 2022-01-27 14:24 | disposition home or self-care (01) | DRG 713 ==
LOC: OR 06:55 → PACU V 10:35 → MED/SURG2 11:25
PROVIDERS: ADMIT Internal Medicine; ATTEND Internal Medicine
PROC: BT141ZZ Fluoroscopy of Kidneys, Ureters and Bladder using Low Osmolar Contrast (ICD-10-PCS; principal; 2022-01-22 08:19)
PROC: 0V508ZZ Destruction of Prostate, Via Natural or Artificial Opening Endoscopic (ICD-10-PCS; 2022-01-22 08:19)
DX: N40.1 Benign prostatic hyperplasia with lower urinary tract symptoms (principal); N13.8 Other obstructive and reflux uropathy; N39.0 Urinary tract infection, site not specified; R33.8 Other retention of urine; R39.14 Feeling of incomplete bladder emptying; R35.1 Nocturia; E11.649 Type 2 diabetes mellitus with hypoglycemia without coma; E78.5 Hyperlipidemia, unspecified; I10 Essential (primary) hypertension; D75.838 Other thrombocytosis; Z87.891 Personal history of nicotine dependence; D64.9 Anemia, unspecified; R31.0 Gross hematuria
CPT/HCPCS: 36415; 71046; 74420; 80048; 82607; 82728; 82746; 82948; 83036; 83540; 83735; 84466; 85025; 85045; 87040; 87086; 88304; 88305; 93005; 94799; 96372; C1758; J0696; J0713; J1100; J1580; J1815; J1885; J2001; J2175; J2185; J2270; J2405; J7030; J7050

== ENCOUNTER → 2023-12-14 | Outpatient (REF) | payer MEDICARE | LOC: US 11:41 | PROVIDERS: ATTEND Urology | DX: R31.21 Asymptomatic microscopic hematuria (principal) | CPT/HCPCS: 74018; 76770; 76857 ==

== ENCOUNTER → 2024-08-16 | Outpatient (REF) | payer MEDICARE | LOC: US 10:10 | PROVIDERS: ATTEND Internal Medicine Hematology & Oncology | DX: D47.1 Chronic myeloproliferative disease (principal); D45 Polycythemia vera | CPT/HCPCS: 76700 ==